=== PATIENT | female | born 1965 | race Caucasian/White ===

== ENCOUNTER 2017-07-08 06:11 | Inpatient (IN) | payer OTHER ==
[~2017-07-08 06:11] MED LIST: NS IV ONE; ROPIVACAINE 0.2% 80 MG, EPINEPHrine 0.2 MG, KETOROLAC TROMETHAMINE 30 MG, morphINE 10 M... IU ONE; TRANEXAMIC ACID IV ONE
--- NOTE | 2017-07-08 06:15 | PDHPUP ---
History & Physical Update H&P update statement: This history and physical update is based on an assessment of the patient which was completed after admission or registration (within 24 hours), but prior to the surgery/procedure.
--- NOTE | 2017-07-08 06:17 | PDIAF ---
- Diagnosis Diagnosis: right hip djd Code Status: Full Code - Medication Management Discharge Medications: Medications to Continue on Transfer Acetaminophen [Tylenol 325mg (*)] 325 mg PO DAILY PRN 06/13/17 [Last Taken Unknown] Cholecalciferol Vit D3 [Vitamin D3 (*)] 5,000 units PO DAILY 06/13/17 [Last Taken Unknown] Hydrochlorothiazide [HCTZ (*)] 25 mg PO DAILY 06/13/17 [Last Taken Unknown] Levothyroxine [Synthroid 100 mcg (*)] 100 mcg PO DAILY06 06/13/17 [Last Taken Unknown] Losartan Potassium [Cozaar 50 mg (*)] 50 mg PO DAILY 06/13/17 [Last Taken Unknown] Meloxicam 15 mg PO DAILY PRN 06/13/17 [Last Taken Unknown] Metoprolol Succinate Xr [Toprol Xl 100 mg (*)] 200 mg PO DAILY 06/13/17 [Last Taken Unknown] [place]-3 Fatty Acids [Fish Oil 1000 mg (*)] 1,000 mg PO DAILY 06/13/17 [Last Taken Unknown] Potassium Cl [Klor-Con 20 meq (*)] 20 meq PO DAILY 06/13/17 [Last Taken Unknown] Discharge Medications: Refer to the Discharge Home Medication list for PRN reason. - Orders Services needed: Home Care, Physical Therapy Home Care Face to Face: I certify that this patient was under my care and that I had the required [id number] encounter meeting the encounter requirements on the discharge day. My findings support the fact that the patient is homebound as defined in Home Care Face to Face Continued: CMS Chapter 7 Medicare Benefits Manual 30.1.1 , The condition of the patient is such that there exists a normal inability to leave home and consequently, leaving home would require a considerable and taxing effort. Activity/Weight Bearing Restrictions: wbat. posterior hip precautions. no internal rotation. no hip flexion >90 deg. daily dressing changes. no soaking or immersion. aspirin 325 mg po daily. f/u at two weeks. seek attn for increasing pain, cp , sob, leg pain, drainage, other focal complaints - Follow Up Care Current Providers and Referrals: AFIA GÓMEZ [Other]
[2017-07-08] MEDS ORDERED: LIDOCAINE 1% 2 ML INJ ONE (06:30)
[2017-07-08] MEDS ORDERED: ceFAZolin 2 GM/SWFI 2 GM/20 ML SYR IVP ONE (06:41)
[2017-07-08] MEDS ORDERED: ACETAMINOPHEN 325 MG TAB PO ONE (06:41)
[2017-07-08] MEDS ORDERED: FAMOTIDINE 20 MG TAB PO ONE (06:41)
[2017-07-08] MEDS ORDERED: LIDOCAINE 1% 2 ML INJ ID PRN (06:42)
[2017-07-08] MEDS ORDERED: LR 1,000 ML IV ONE (06:42)
[2017-07-08] MEDS ORDERED: THROMBIN (BOVINE) 5,000 UNIT VIAL TP ONE (07:27)
[2017-07-08] MEDS ORDERED: CALCIUM CHLORIDE 1 GM/10 ML INJ ONE (07:27)
[2017-07-08] MEDS ORDERED: ceFAZolin 1 GM/5 ML SYR ONE (07:28)
[2017-07-08] MEDS ORDERED: BUPIVACAINE 0.5% 30 ML SDV ONE (07:28)
[2017-07-08] MEDS ORDERED: MIDAZOLAM 2 MG/2 ML VIAL IVP ONE (07:51)
--- NOTE | 2017-07-08 07:51 | PDANEPAE ---
ANE Past Medical History - Cardiovascular History Hx Hypertension: Yes Hx Arrhythmias: No Hx Chest Pain: No Hx Coronary Artery / Peripheral Vascular Disease: No Hx CHF / Valvular Disease: No Hx Palpitations: No - Pulmonary History Hx COPD: No Hx Asthma/Reactive Airway Disease: No Hx Recent Upper Respiratory Infection: No Hx Oxygen in Use at Home: No Hx Sleep Apnea: No Sleep Apnea Screening Result - Last Documented: Negative - Neurologic History Hx Cerebrovascular Accident: No Hx Seizures: No Hx Dementia: No - Endocrine History Hx Diabetes: No Hypothyroid: Yes Obesity: severe Endocrine History Comment: hypothyroid on RX - Renal History Hx Renal Disorders: No - Liver History Hx Hepatic Disorders: No - Neurological & Psychiatric Hx Hx Neurological and Psychiatric Disorders: No - Cancer History Hx Cancer: Yes Cancer History Comment: basal cell-nose - Congenital Disorder History Hx Congenital Disorders: No - GI History Hx Gastrointestinal Disorders: No - Other Health History Other Health History: OA R hip, R knees - Chronic Pain History Chronic Pain: Yes (R hip) - Surgical History Prior Surgeries: R mastoid surgeries -child,age 20. T and AOscar diop ~2009 ANE Review of Systems Review of Systems: - Exercise capacity METS (RN): 4 METS ANE Patient History - Allergies Allergies/Adverse Reactions: No Known Allergies Allergy (Unverified 06/18/17 10:10) - Home Medications Home Medications: Acetaminophen [Tylenol 325mg (*)] 325 mg PO DAILY PRN 06/13/17 [Last Taken 07/07] Cholecalciferol Vit D3 [Vitamin D3 (*)] 5,000 units PO DAILY 06/13/17 [Last Taken 06/24/17] Hydrochlorothiazide [HCTZ (*)] 25 mg PO DAILY 06/13/17 [Last Taken 07/07/17] Levothyroxine [Synthroid 100 mcg (*)] 100 mcg PO DAILY06 06/13/17 [Last Taken ] Losartan Potassium [Cozaar 50 mg (*)] 50 mg PO DAILY 06/13/17 [Last Taken ] Meloxicam 15 mg PO DAILY PRN 06/13/17 [Last Taken 06/24/17] Metoprolol Succinate Xr [Toprol Xl 100 mg (*)] 200 mg PO DAILY 06/13/17 [Last Taken 07/08/17] [place]-3 Fatty Acids [Fish Oil 1000 mg (*)] 1,000 mg PO DAILY 06/13/17 [Last Taken 06/24/17] Potassium Cl [Klor-Con 20 meq (*)] 20 meq PO DAILY 06/13/17 [Last Taken 07/07/17 ] - NPO status NPO Since - Liquids (Date): 07/07/17 NPO Since - Liquids (Time): 20:00 NPO Since - Solids (Date): 07/07/17 NPO Since - Solids (Time): 18:00 - Smoking Hx Smoking Status: Never smoked ANE Labs/Vital Signs - Vital Signs Blood Pressure: 123/70 Heart Rate: 72 Respiratory Rate: 16 O2 Sat (%): 92 Height: 175.26 cm Weight: 115.666 kg ANE Physical Exam - Airway Neck exam: FROM Mallampati Score: Class 1 Mouth exam: normal dental/mouth exam - Pulmonary Pulmonary: no respiratory distress - Cardiovascular Cardiovascular: regular rate and rhythym - ASA Status ASA Status: III ANE Anesthesia Plan Anesthesia Plan: general endotracheal anesthesia, spinal
[2017-07-08] MEDS ORDERED: fentaNYL 100 MCG/2 ML INJ ONE (08:14)
[2017-07-08] MEDS ORDERED: PROPOFOL/EMULSION 500 MG/50 ML BOTTLE IV ONE (08:37)
[2017-07-08] MEDS ORDERED: epHEDrine SULFATE 10 MG/ML SYR ONE (09:36)
[2017-07-08] MEDS ORDERED: LIDOCAINE 2% 5 ML SDV ONE (09:36)
[2017-07-08] MEDS ORDERED: ONDANSETRON 4 MG/2 ML VIAL IVP PRN ×2 (10:47→11:15)
[2017-07-08] MEDS ORDERED: LR 500 ML IV PRN (10:47)
[2017-07-08] MEDS ORDERED: fentaNYL 100 MCG/2 ML INJ IVP PRN (10:47)
[2017-07-08] MEDS ORDERED: LABETALOL HCL 50 MG/10 ML SYR IVP PRN (10:47)
[2017-07-08] MEDS ORDERED: NALOXONE HCL 0.4 MG/ML INJ IVP PRN (10:47)
[2017-07-08] MEDS ORDERED: HYDROCODONE/APAP 5/325 TAB PO PRN (10:47)
[2017-07-08] MEDS ORDERED: DIAZEPAM 5 MG TAB PO PRN (11:15)
[2017-07-08] MEDS ORDERED: PROMETHAZINE HCL 25 MG SUPPR PR PRN (11:15)
[2017-07-08] MEDS ORDERED: TEMAZEPAM 15 MG CAP PO PRN (11:15)
[2017-07-08] MEDS ORDERED: MAGNESIUM HYDROXIDE 30 ML UDCUP PO PRN (11:15)
[2017-07-08] MEDS ORDERED: ONDANSETRON DISINTEGRATING 4 MG TAB PO PRN (11:15)
[2017-07-08] MEDS ORDERED: diphenhydrAMINE 25 MG CAP PO PRN (11:15)
[2017-07-08] MEDS ORDERED: LACTULOSE 20 GM/30 ML UDCUP PO PRN (11:15)
[2017-07-08] MEDS ORDERED: METOCLOPRAMIDE 10 MG/2 ML VIAL IVP PRN (11:15)
[2017-07-08] MEDS ORDERED: DIPHENOXYLATE/ATROPINE LOMOTIL 1 TAB PO PRN (11:15)
[2017-07-08] MEDS ORDERED: POLYETHYLENE GLYCOL 3350 17 GM PKT PO PRN (11:15)
[2017-07-08] MEDS ORDERED: oxyCODONE IR 5 MG TAB PO PRN (11:15)
[2017-07-08] MEDS ORDERED: PROMETHAZINE HCL 25 MG/ML INJ IVP PRN (11:15)
[2017-07-08] MEDS ORDERED: BISACODYL 10 MG SUPP PR PRN (11:15)
[2017-07-08] MEDS ORDERED: PROPOFOL 200 MG/20 ML VIAL ONE (11:27)
[2017-07-08] MEDS ORDERED: LR 1,000 ML IV SCH (11:30)
--- NOTE | 2017-07-08 11:45 | POSTANESTH ---
Post Anesthetic Evaluation Cardiovascular Status: Normal, Stable Respiratory Status: Normal, Stable Level of Consciousness/Mental Status: Can Participate in Eval Pain Control: Adequate, Prn Tx Ordered Nausea/Vomiting Control: Adequate, Prn Tx Ordered Complications Possibly Related to Anesthesia: None Noted
[2017-07-08] MEDS: ACETAMINOPHEN 325 MG TAB PO SCH ×3 (13:15→23:22)
[2017-07-08] MEDS: ceFAZolin 2 GM/DEXTROSE 100 ML IV SCH ×2 (14:37→20:45)
[2017-07-08] MEDS: TRANEXAMIC ACID 650 MG TAB PO SCH ×2 (14:37→23:23)
[2017-07-08] MEDS: SENNOSIDES/DOCUSATE SODIUM TAB PO SCH (20:44)
[2017-07-08] MEDS: FAMOTIDINE 20 MG TAB PO SCH (20:45)
[2017-07-08] MEDS: ASPIRIN 325 MG TAB PO SCH (22:25)
[2017-07-09 04:35] VITALS: RESP 16; TEMP 98.4
[2017-07-09] MEDS: ACETAMINOPHEN 325 MG TAB PO SCH ×2 (05:34→12:03)
[2017-07-09] MEDS ORDERED: LEVOTHYROXINE 100 MCG TAB PO SCH (06:00)
[2017-07-09] MEDS: TRANEXAMIC ACID 650 MG TAB PO SCH (06:27)
--- NOTE | 2017-07-09 07:35 | PDIAF ---
- Diagnosis Diagnosis: right hip djd Code Status: Full Code - Medication Management Discharge Medications: Medications to Continue on Transfer Acetaminophen [Tylenol 325mg (*)] 325 mg PO DAILY PRN 06/13/17 [Last Taken 07/07] Cholecalciferol Vit D3 [Vitamin D3 (*)] 5,000 units PO DAILY 06/13/17 [Last Taken 06/24/17] Hydrochlorothiazide [HCTZ (*)] 25 mg PO DAILY 06/13/17 [Last Taken 07/07/17] Levothyroxine [Synthroid 100 mcg (*)] 100 mcg PO DAILY06 06/13/17 [Last Taken ] Losartan Potassium [Cozaar 50 mg (*)] 50 mg PO DAILY 06/13/17 [Last Taken ] Meloxicam 15 mg PO DAILY PRN 06/13/17 [Last Taken 06/24/17] Metoprolol Succinate Xr [Toprol Xl 100 mg (*)] 200 mg PO DAILY 06/13/17 [Last Taken 07/08/17] [place]-3 Fatty Acids [Fish Oil 1000 mg (*)] 1,000 mg PO DAILY 06/13/17 [Last Taken 06/24/17] Potassium Cl [Klor-Con 20 meq (*)] 20 meq PO DAILY 06/13/17 [Last Taken 07/07/17 ] Aspirin [Aspirin 325 mg (*)] 325 mg PO DAILY tab 07/09/17 [Last Taken Unknown] Diazepam [Valium 5 MG (*)] 5 mg PO Q6HRS PRN #30 tab 07/09/17 [Last Taken Unknown] oxyCODONE IR [Oxycodone Ir (*)] 5 - 10 mg PO Q3HRS PRN #90 tab 07/09/17 [Last Taken Unknown] Discharge Medications: Refer to the Discharge Home Medication list for PRN reason. - Orders Services needed: Home Care, Physical Therapy Home Care Face to Face: I certify that this patient was under my care and that I had the required [id number] encounter meeting the encounter requirements on the discharge day. My findings support the fact that the patient is homebound as defined in Home Care Face to Face Continued: CMS Chapter 7 Medicare Benefits Manual 30.1.1 , The condition of the patient is such that there exists a normal inability to leave home and consequently, leaving home would require a considerable and taxing effort. Diet Recommendation: no restrictions on diet Diet Texture: Regular Texture Diet Activity/Weight Bearing Restrictions: wbat. posterior hip precautions. no internal rotation. no hip flexion >90 deg. daily dressing changes. no soaking or immersion. aspirin 325 mg po daily. f/u at two weeks. seek attn for increasing pain, cp , sob, leg pain, drainage, other focal complaints - Follow Up Care Current Providers and Referrals: AFIA GÓMEZ [Other]
[2017-07-09] MEDS ORDERED: HYDROCHLOROTHIAZIDE 25 MG TAB PO SCH (09:00)
[2017-07-09] MEDS ORDERED: LOSARTAN POTASSIUM 50 MG TAB PO SCH (09:00)
[2017-07-09] MEDS ORDERED: METOPROLOL SUCCINATE XR 100 MG TAB PO SCH (09:00)
[2017-07-09] MEDS ORDERED: POTASSIUM CL 20 MEQ TAB PO SCH (09:00)
[2017-07-09] MEDS: ASPIRIN 325 MG TAB PO SCH (09:06)
[2017-07-09] MEDS: FAMOTIDINE 20 MG TAB PO SCH (09:06)
[2017-07-09] MEDS: SENNOSIDES/DOCUSATE SODIUM TAB PO SCH (09:07)
--- NOTE | 2017-07-09 09:33 | GDS ---
[f rep st] DISCHARGE SUMMARY ADMIT DIAGNOSIS: Right hip degenerative joint disease. DISCHARGE DIAGNOSIS: Right hip degenerative joint disease. PROCEDURE: Right total hip arthroplasty-posterior. OPERATIVE INDICATIONS: The patient is a 52-year-old woman with end-stage arthritis to her right hip. Clinical and radiographic features are consistent with this. She has failed all attempts at conser vative management. I have therefore recommended operative intervention. She understood the risks, b enefits, alternatives, and wished to proceed. A written consent was signed and placed in [facility]. HOSPITAL COURSE: The patient was admitted to the hospital floor after uncomplicated total hip arthro plasty. She tolerated the procedure well. She quickly progressed with physical therapy. At the heide e of discharge, she is tolerating an oral diet. Her pain is well controlled on oral medicines. She has negative Homans bilaterally. No calf swelling or tenderness. Her dressing is clean, dry, and in tact. DISCHARGE ACTIVITY: She is touchdown weightbearing only across the right hip for 6 weeks. Posterior hip precautions will be observed. Daily dressing changes. No soaking or immersion. May shower wit hout the bandage. NADIR hose on both lower extremities for 2 weeks. FOLLOW UP: At 2 weeks for repeat evaluation. Seek attention for increasing redness, swelling, drain age, discharge, or other focal complaints. DISCHARGE MEDICATIONS: Oxycodone 5 mg 1-2 every 4 hours p.r.n. pain, Valium 5 mg 1-2 every 8 hours p .r.n. spasm. Copy requested to: Primary Care Physician /[id number]/MODL
--- NOTE | 2017-07-09 09:33 | GDS ---
[f rep st] DISCHARGE SUMMARY ADMIT DIAGNOSIS: Right hip degenerative joint disease. DISCHARGE DIAGNOSIS: Right hip degenerative joint disease. PROCEDURE: Right total hip arthroplasty-posterior. OPERATIVE INDICATIONS: The patient is a 52-year-old woman with end-stage arthritis to her right hip. Clinical and radiographic features are consistent with this. She has failed all attempts at conser vative management. I have therefore recommended operative intervention. She understood the risks, b enefits, alternatives, and wished to proceed. A written consent was signed and placed in [facility]. HOSPITAL COURSE: The patient was admitted to the hospital floor after uncomplicated total hip arthro plasty. She tolerated the procedure well. She quickly progressed with physical therapy. At the heide e of discharge, she is tolerating an oral diet. Her pain is well controlled on oral medicines. She has negative Homans bilaterally. No calf swelling or tenderness. Her dressing is clean, dry, and in tact. DISCHARGE ACTIVITY: She is touchdown weightbearing only across the right hip for 6 weeks. Posterior hip precautions will be observed. Daily dressing changes. No soaking or immersion. May shower wit hout the bandage. NADIR hose on both lower extremities for 2 weeks. FOLLOW UP: At 2 weeks for repeat evaluation. Seek attention for increasing redness, swelling, drain age, discharge, or other focal complaints. DISCHARGE MEDICATIONS: Oxycodone 5 mg 1-2 every 4 hours p.r.n. pain, Valium 5 mg 1-2 every 8 hours p .r.n. spasm. Copy requested to: Primary Care Physician /[id number]/MODL
--- NOTE | 2017-07-09 09:33 | GDS ---
[f rep st] DISCHARGE SUMMARY ADMIT DIAGNOSIS: Right hip degenerative joint disease. DISCHARGE DIAGNOSIS: Right hip degenerative joint disease. PROCEDURE: Right total hip arthroplasty-posterior. OPERATIVE INDICATIONS: The patient is a 52-year-old woman with end-stage arthritis to her right hip. Clinical and radiographic features are consistent with this. She has failed all attempts at conser vative management. I have therefore recommended operative intervention. She understood the risks, b enefits, alternatives, and wished to proceed. A written consent was signed and placed in [facility]. HOSPITAL COURSE: The patient was admitted to the hospital floor after uncomplicated total hip arthro plasty. She tolerated the procedure well. She quickly progressed with physical therapy. At the heide e of discharge, she is tolerating an oral diet. Her pain is well controlled on oral medicines. She has negative Homans bilaterally. No calf swelling or tenderness. Her dressing is clean, dry, and in tact. DISCHARGE ACTIVITY: She is touchdown weightbearing only across the right hip for 6 weeks. Posterior hip precautions will be observed. Daily dressing changes. No soaking or immersion. May shower wit hout the bandage. NADIR hose on both lower extremities for 2 weeks. FOLLOW UP: At 2 weeks for repeat evaluation. Seek attention for increasing redness, swelling, drain age, discharge, or other focal complaints. DISCHARGE MEDICATIONS: Oxycodone 5 mg 1-2 every 4 hours p.r.n. pain, Valium 5 mg 1-2 every 8 hours p .r.n. spasm. Copy requested to: Primary Care Physician /[id number]/MODL
[2017-07-09 11:33] VITALS: BP 128/74; O2SAT 91
[2017-07-09 12:06] VITALS: PULSE 73
--- NOTE | 2017-07-09 15:13 | ASDISCHSUM ---
Discharge Information Plan Status:Home with Home Health Medically Cleared to Leave: Discharge Date:07/09/2017 03:09 PM CM D/C Disposition:Home Health Service ADT D/C Disposition:Home Health Service Projected Discharge Date:07/09/2017 11:00 AM Transportation at D/C: Discharge Delay Reason: Follow-Up Date:07/09/2017 11:00 AM Discharge Slot: Final Diagnosis: Placement Information Referral Type:*Home Health Care Services Referral ID:[id number] Provider Name:[facility] Address 1:[address] [address] Address 2: City:[place] Selection Factors: State:[place] Patient Contact Information Contact Name:ALLYSSA Relationship: [address] [address] City:[place] Alternate Phone: State/Zip Code:[place] [address] Email: Financial Information [facility] Desc[facility] Primary Plan Number:[id number] Secondary Plan Desc: Secondary Plan Number: Assessment Information [facility] CM Progress Note CM Note CM Note Notes: PT rec HHC, pt agreeable. Pt chooses [facility] for ins coverage and location. [facility] Pt medically stable for d/c w HHC and family support. Date Signed: 07/09/2017 03:12 PM Electronically Signed By:SHEMAR Goldsmith Intervention Information
--- NOTE | 2017-07-09 15:13 | ASDISCHSUM ---
Discharge Information Plan Status:Home with Home Health Medically Cleared to Leave: Discharge Date:07/09/2017 03:09 PM CM D/C Disposition:Home Health Service ADT D/C Disposition:Home Health Service Projected Discharge Date:07/09/2017 11:00 AM Transportation at D/C: Discharge Delay Reason: Follow-Up Date:07/09/2017 11:00 AM Discharge Slot: Final Diagnosis: Placement Information Referral Type:*Home Health Care Services Referral ID:[id number] Provider Name[facility] Address 1:[address] [address] Address 2: City:[place] Selection Factors: State:[place] Patient Contact Information Contact Name:ALLYSSA Relationship: [address] [address] City:[place] Alternate Phone: State/Zip Code:[place] [address] Email: Financial Information [facility] Desc[facility] Primary Plan Number:[id number] Secondary Plan Desc: Secondary Plan Number: Assessment Information [facility] CM Progress Note CM Note CM Note Notes: PT rec HHC, pt agreeable. Pt chooses [facility] for ins coverage and [facility]. [facility] Pt medically stable for d/c w HHC and family support. Date Signed: 07/09/2017 03:12 PM Electronically Signed By:SHEMAR Goldsmith Intervention Information
--- NOTE | 2017-07-09 15:13 | ASDISCHSUM ---
Discharge Information Plan Status:Home with Home Health Medically Cleared to Leave: Discharge Date:07/09/2017 03:09 PM CM D/C Disposition:Home Health Service ADT D/C Disposition:Home Health Service Projected Discharge Date:07/09/2017 11:00 AM Transportation at D/C: Discharge Delay Reason: Follow-Up Date:07/09/2017 11:00 AM Discharge Slot: Final Diagnosis: Placement Information Referral Type:*Home Health Care Services Referral ID:[id number] Provider Name[facility] Address 1:[address] [address] Address 2: City:[place] Selection Factors: State:[place] Patient Contact Information Contact Name:ALLYSSA Relationship: [address] [address] [facility] [address] [facility] [address] City:[place] Alternate Phone: State/Zip Code:[place] [address] Email: Financial Information [facility] Primary [facility] Desc[facility] Primary Plan Number:[id number] Secondary Plan Desc: Secondary Plan Number: Assessment Information [facility] CM Progress Note CM Note CM Note Notes: PT rec HHC, pt agreeable. Pt [facility] for ins coverage and [facility]. [facility] Pt medically stable for d/c w HHC and family support. Date Signed: 07/09/2017 03:12 PM Electronically Signed By:SHEMAR Goldsmith Intervention Information
--- NOTE | 2017-07-13 10:07 | GOP ---
[f rep st] OPERATIVE REPORT DATE OF OPERATION: 07/08/2017 SURGEON: Freeman Darnell MD GENERAL ADMINISTRATOR: Louis Vital, [employer]PRESENTATIVE, [facility], who was a medical necessity for the entirety of the case. PREOPERATIVE DIAGNOSIS: Right hip degenerative joint disease. POSTOPERATIVE DIAGNOSIS: Right hip degenerative joint disease. PROCEDURE PERFORMED: Right total hip arthroplasty--posterior. FINDINGS: SPECIMENS: Femoral head to Pathology. ESTIMATED BLOOD LOSS: 300 cc. INDICATIONS: The patient is a 52-year-old woman, who has end-stage arthritis to her right hip. Clin ical and radiographic features are consistent with this. Given her large abdominal girth, I have rec ommended a posterior approach rather than an anterior approach. She understood the risks, benefits, and alternatives, and wished to proceed. The written consent was signed and placed in the patient's chart. DESCRIPTION OF PROCEDURE: The patient was identified in the pre-anesthesia area. The right hip was clearly demarcated as the operative site with an indelible marker. She was given 2 g of Ancef intrav enously en route to the operative suite. In the OR, sedation was administered. After a spinal anest hetic, she was turned into the left lateral decubitus position. All bony prominences were well padde d, including the use of an axillary roll. The right lower extremity and hip were then sterilely prep ped and draped in the usual fashion. An appropriate time-out procedure was carried out. A posterior approach was made to the right hip, with a curvilinear incision over the central aspect of the great er trochanter extending into the gluteus musculature. It was carried through the skin and subcutaneo us tissue directly to the underlying tensor fascia abdullahi. This was opened in the origin of its fibers and split into the gluteus musculature. A Charnley self-retaining retractor was then placed. The l eg was turned to internal rotation. A Hohmann retractor was placed deep to the gluteus medius tendon . The piriformis tendon was identified and tagged with a #1 Ethibond suture. It and the capsule wer e then retracted off the posterior aspect of the greater trochanter, protecting the underlying sciati c nerve. A T was made in the capsule. The hip was then dislocated. Retractors were placed inferior to the head, and the bony cut was then made. The head was withdrawn. Soft tissue release of the ca psule allowed mobilization of the femur forward, and an anterior hip retractor was then placed. This allowed full visualization of the underlying acetabulum. Serial reaming was carried out to a size 5 6 mm diameter reamer. A 56 mm titanium cup was then impacted and confirmed to be fully seated. A si ngle 6.5 mm cancellous screw was then placed, followed by a 10-degree hooded X3 liner, with a 36 mm i nner diameter. This was confirmed to be fully located as well. Attention was then turned to the fem ur. The proximal canal was opened. Serial broaching was carried out to a size 7 stem. Intraoperativ e fluoroscopy confirmed appropriate positioning and sizing of the components. A size 7 stem was then placed and confirmed to be fully seated. During the stem placement, there was a slight crack over t he posterior cortex of the opening of the proximal femur. Therefore, the stem was backed out approxi mately half a centimeter. A cerclage cable was placed and appropriately tensioned, followed by impac tion of the stem and additional tensioning of the cable, with cramping of the cable stabilizer. Exce ss cable lengths were then removed. The stem was stable. Trialing was carried out, and a 36 mm, -5 mm neck length Biolox head was then impacted across the trunnion. The hip was reduced. Appropriate leg lengths were restored. Full range of motion was in place. She had 90 degrees of hip flexion, wi th 80 degrees of internal rotation prior to any subluxation. The wound was copiously irrigated. The piriformis and the superior and inferior capsule were repaired through bone holes through the paper latcher ior aspect of the greater trochanter. The underlying soft tissue was instilled with a platelet-rich plasma solution. The surrounding tissue was instilled with a joint cocktail of ropivacaine, morphine , Toradol, and epinephrine. The tensor fascia abdullahi was closed using #1 Ethibond and 0 Vicryl through the hip abductors. The underlying tissue was closed using 0 Vicryl and 0 Quill, a Monocryl equivale nt. The tissues were injected with a platelet-rich plasma and the joint cocktail as above. A steril e dressing was applied. The patient was turned to the supine position and an abduction wedge placed. The patient was awakened, extubated, and taken to the recovery room in good, stable condition. TOTAL TOURNIQUET TIME: None. COMPLICATIONS: None. IMPLANTS: [place] Tritanium acetabular shell, size 56 mm, single 6.5 mm cancellous bone screw, Tride nt X3 10-degree hooded polyethylene insert with a 36 mm inner diameter, Biolox Delta ceramic head wit h a 36, -5 mm neck length, and Accolade II 127-degree neck angle hip stem, size 7. DISPOSITION: To the recovery room and then the floor. She will be touch-down weightbearing only giv en the fracture and the need for the cerclage wire, and will follow posterior hip precautions. /[id number]/MODL
== END 2017-07-09 15:09 | disposition home health service (06) | DRG 470 ==
LOC: F3N 06:11
PROVIDERS: ADMIT Orthopaedic Surgery; ATTEND Orthopaedic Surgery
PROC: 0SR904Z Replacement of Right Hip Joint with Ceramic on Polyethylene Synthetic Substitute, Open Approach (ICD-10-PCS; principal; 2017-07-08 08:45)
DX: M16.11 Unilateral primary osteoarthritis, right hip (principal); I10 Essential (primary) hypertension; E03.9 Hypothyroidism, unspecified
CPT/HCPCS: 97116-GP; 97161-GP; 97165-GO; 97530-GP; C1713; J0171; J0690; J1885; J2250; J2704; J2795; J3010

== ENCOUNTER → 2017-08-22 | Outpatient (CLI) | payer OTHER | LOC: BMCIMAGING 09:19 | PROVIDERS: ATTEND Physician Assistant | DX: Z47.1 Aftercare following joint replacement surgery (principal); Z96.641 Presence of right artificial hip joint ==

== ENCOUNTER → 2017-10-03 | Outpatient (CLI) | payer OTHER | LOC: BMCIMAGING 09:11 | PROVIDERS: ATTEND Physician Assistant | DX: Z47.1 Aftercare following joint replacement surgery (principal); Z96.641 Presence of right artificial hip joint ==

== ENCOUNTER → 2018-02-11 | Outpatient (CLI) | payer OTHER | LOC: EDUNIT# 01-18 08:16 → BMCIMAGING 14:32 | PROVIDERS: ATTEND Family Medicine | DX: Z47.1 Aftercare following joint replacement surgery (principal); Z96.641 Presence of right artificial hip joint ==